=== PATIENT | female | born 1945 | race Caucasian/White ===

== ENCOUNTER 2024-07-07 15:43 | Emergency (ER) | payer OTHER, MEDICARE ==
[~2024-07-07] VITALS: Ht 160 cm; Wt 68.0 kg
[2024-07-07] MEDS ORDERED: LIDOCAINE 5% (PATCH) 1 EA PATCH TP ONE (17:45)
[2024-07-07] MEDS: LIDOCAINE 5% (PATCH) 1 EA PATCH TP SCH (17:49)
[2024-07-07] MEDS ORDERED: LIDO30AD10 TP (18:04)
[2024-07-07 19:27] VITALS: BP 140/63; TEMP 98; O2SAT 98
== END 2024-07-07 19:28 | disposition home or self-care (01) ==
LOC: ER 15:53
DX: S29.012A Strain of muscle and tendon of back wall of thorax, initial encounter (principal); S13.4XXA Sprain of ligaments of cervical spine, initial encounter; R06.02 Shortness of breath; R07.89 Other chest pain; E78.5 Hyperlipidemia, unspecified; I10 Essential (primary) hypertension; V43.52XA Car driver injured in collision with other type car in traffic accident, initial encounter; Y93.89 Activity, other specified; Y92.488 Other paved roadways as the place of occurrence of the external cause; Y99.8 Other external cause status
CPT/HCPCS: 71250-TC; 72125-TC